=== PATIENT | male | born 1960 | race Caucasian/White ===

== ENCOUNTER → 2025-01-13 13:48 | Outpatient (CLI) | payer OTHER, SELFPAY ==
[2025-01-13 16:05] LABS: Prostate Specific Antigen 1.02 ng/mL (0.10-4.00)
== END ==
PROVIDERS: PCP Family Medicine; Referring Provider Urology; Visit Provider Urology
DX: R33.9 Retention of urine, unspecified (principal); Z87.448 Personal history of other diseases of urinary system
CPT/HCPCS: 36415; 84153

== ENCOUNTER → 2025-01-25 08:11 | Outpatient (CLI) | payer OTHER, SELFPAY ==
--- NOTE | 2025-01-25 08:12 | DI.US.S_ITS ---
PROCEDURE: US RENAL COMPLETE INDICATIONS: 64 y/o M w/ incomplete bladder emptying, eval upper tracts TECHNIQUE: Real-time scanning was performed of the kidneys and bladder, with image documentation. COMPARISON: None. FINDINGS: Kidneys: Kidneys are normal in size. Right kidney measures 12.6 cm long; left kidney measures 13.8 cm long. Right renal cortical thickness is 0.7 cm; left renal cortical thickness is 1.5 cm. Renal cortical echotexture is normal. Right irregular peripelvic cyst measuring 2.5 cm versus dilated calyx. Otherwise, no hydronephrosis. No nephrolithiasis. No suspicious solid mass lesions. Left renal cortical cyst measuring 1.4 x 0.9 x 1.1 cm with associated calcification. Bladder: Pre-void bladder volume is 692 mL. Post-void residual is 18 mL. Pre- void images demonstrate no intraluminal masses or stones. On pre-void images, neither ureteral jets are noted with color Doppler interrogation. (Of note, ureteral jets may not be detectable in up to 25% of cases due to insufficient differences in specific gravity between ureteral and bladder urine). Miscellaneous: No free pelvic fluid. Prostate is enlarged and extends into the base of the bladder. IMPRESSION: 1. Irregular right peripelvic cyst measuring 2.5 cm versus dilated calyx. Recommend six-month follow-up ultrasound. 2. Otherwise, no hydronephrosis. 3. Left renal cortical cyst measuring 1.4 cm with associated calcification. 4. No significant postvoid residual. 5. Prostate is enlarged and extends into the base of the urinary bladder. Dictated by: Benjamin Guzman M.D. on 01/25/2025 at 10:22 Approved by: Benjamin Guzman M.D. on 01/25/2025 at 10:30
== END ==
LOC: US 08:11
PROVIDERS: PCP Family Medicine; Referring Provider Urology; Visit Provider Urology
DX: R33.9 Retention of urine, unspecified (principal); N28.1 Cyst of kidney, acquired; N40.0 Benign prostatic hyperplasia without lower urinary tract symptoms; Z87.448 Personal history of other diseases of urinary system
CPT/HCPCS: 76770